=== PATIENT | female | born 1940 | race Caucasian/White ===

== ENCOUNTER 2018-01-21 12:06 | Day surgery (SDC) | payer MEDICARE, OTHER ==
--- NOTE | 2018-01-21 13:23 | OR ---
Operative Report - Dictated Report Narrative: Location: Main OR Anesthesia: None Preoperative Diagnosis: Dysuria/concern for interstitial cystitis Postoperative Diagnosis: Normal bladder with the exception of some trabeculation Procedure: #1 flexible cystoscopy with washing for cytology and culture Indications: 77-year-old female with lower abdominal/urethral sharp symptomatology. Possibility of interstitial cystitis has been mention with patient concerned that that may be going on. Has been on Vagifem of recent presumed atrophy and has been on year ago with some improvement. Above- mentioned procedures indicated to assess bladder make sure no urethral stricture possibly identify was causing symptomatology. Description: Consent obtained. Placed in the probably position. Prepped and draped. Time-out taken . Scope inserted into the urethra and navigated to the bladder with ease. No tumors stones or suspicious lesions. Does have some mild tuberculation of undetermined clinical significance. Washing obtained for cytology and culture Ureters normal in number and position Normal bladder neck . Normal urethra without significant angulation, polyps or evidence of obstruction/stricture. EBL: 0 Specimen: Washing for cytology and culture Condition: tolerate procedure Important Findings: Other than trabeculation very normal cystoscopy. No evidence of interstitial cystitis or urethral stricture. Does have some external atrophy with introital narrowing. FOLLOW UP: We will follow with Alison in 6 weeks with a voided urinalysis. If continues to have trouble/abdominal symptomatology would obtain CT scan with oral and IV contrast just to make sure nothing else going on outside of bladder. If continues to have bladder symptomatology can consider anticholinergic. I do think topical estrogen weekly or twice a week is a good idea based on external exam.
[2018-01-21 13:58] VITALS: BP 162/74
== END 2018-01-21 12:07 | disposition home or self-care (01) ==
LOC: AMB 12:06
PROVIDERS: ATTEND Urology
PROC: 0TJB8ZZ Inspection of Bladder, Via Natural or Artificial Opening Endoscopic (ICD-10-PCS; principal; 2018-01-21)
PROC: 3E1 Administration, Physiological Systems and Anatomical Regions, Irrigation (ICD-10-PCS; 2018-01-21)
DX: Z87.440 Personal history of urinary (tract) infections; Z68.26 Body mass index [BMI] 26.0-26.9, adult; R30.0 Dysuria; N32.89 Other specified disorders of bladder